=== PATIENT | female | born 1995 | race Caucasian/White ===

== ENCOUNTER 2018-12-09 20:29 | Inpatient (IN) | payer OTHER ==
[2018-12-09] MEDS ORDERED: Lactated Ringers 1000 ML Bag* 1,000 ML IV ONE (21:29)
[2018-12-09] MEDS ORDERED: Buffered Lidocaine 1% SYRIN* 1 ML/SYRINGE INTRADERM ONE (21:29)
--- NOTE | 2018-12-09 21:48 | HP ---
General Information - Reason for Visit Pt reports ctx starting this morning, then faded away, then increased in strength and intensity this evening. Reports active FM, denies LOF, does report some bloody show. - General Information Maternal Age: 23 Grav: 1 Para: 0 SAB: 0 IEA: 0 Estimated Due Date: 12/17/18 Determined By: LMP Maternal Blood Type and Rh: O Positive - Results this Serology/RPR Result: Non-Reactive Rubella Result: Immune HBsAg Result: Negative HIV Result: Negative GBS Culture Result: Negative Past Medical History Delivery History: See Records - primigravida Pertinent Past Medical History: Non-Contributory Pertinent Past Surgical History: See Records - laparoscopic appendectomy Pertinent Family History: Non-Contributory - Antepartal Records Antepartal Records: Reviewed, Complicated by: - GDM, elevated BP Review of Systems Constitutional: Uncomfortable CV Complaint: No Respiratory: Shortness of Breath: No Gastrointestinal: No Nausea/Vomiting, Normal Bowel Movement Genitourinary: No Dysuria, No Bleeding, No Leaking Fluid Musculoskeletal: No Epigastric Pain, Contractions Neurological: No Headache, No Visual Changes Movement: Normal Exam Allergies/Adverse Reactions: Allergies MS Penicillins [Penicillins] Allergy (Severe, Verified 12/01/14 16:55) Hives Vital Signs 12/09/18 21:18 Temperature 98.2 F Pulse Rate 116 Respiratory 20 Rate Blood Pressure 133/91 (mmHg) O2 Sat by Pulse 98 Oximetry - Measurements Height: 5 ft 4 in Weight: 97.976 kg Weight in lbs: 216.660755 Body Mass Index (BMI): 37.0 Pre- Weight: 84.368 kg Weight Gained This : 30 lbs and 0 ozs - Exam Breast: Breast Exam Deferred CVA: No CVA Tenderness Extremities: Edema - mild pedal edema and edema of hands Heart: Normal Rhythm/Heart Sounds HEENT: No Significant Findings Lungs: Clear Bilaterally Rectal: Rectal Exam Deferred Reflexes: DTR 2+ Thyroid: No Thyromegaly - Abdominal Exam Abdomen Exam: Non-Tender - fundal height somewhat large for dates - Ultrasound/Biophysical Profile Ultrasound Status: Not Done Targeted Exam Findings See L&D Outpatient Visit Provider Note for Findings: N/A Estimated Weight: 8# Cervical Exam: 3cm - 3-4 cm Effacement: 80% Station: -1 Presenting Part: Vertex Membrane Status: Intact Bleeding/Discharge: None EFM Findings - External Monitor Findings Baseline Heart Rate: 150 External Monitor Findings: Accelerations Present, No Pattern of Variable or Late Decelerations, Variability Moderate, Baseline Stable Contractions: Regular, Mild, Moderate, 45-90 Seconds Contraction Frequency: 2-5 Assessment/Plan - Assessment 23 year old at 38 6/7 weeks gestation in early labor with elevated BP, gestational HTN vs preeclampsia. - Obstetrical Risk Factors Obstetrical Risk Factors: Gestational Diabetes - Plan Plan: Admit - Anticipate Vaginal Delivery - discussed options with pt. As she was scheduled for induction tomorrow morning and blood pressure is elevated, will admit tonight. Will draw PEC labs and monitor labor status overnight. Pain relief as needed. - Date/Time of Admission Date of Admission: 12/09/18 Time of Admission: 21:19
[2018-12-09] MEDS ORDERED: Lactated Ringers 1000 ML Bag* 1,000 ML IV SCH (22:00)
[2018-12-09 22:27] LABS: Hematocrit 37 % (33-41); Hemoglobin 12.4 g/dL (12.0-16.0); Mean Corpuscular HGB Conc 34 g/dL (31-36); Mean Corpuscular Hemoglobin 29 pg (27-31); Mean Corpuscular Volume 86 fL (80-97); Mean Platelet Volume 9.7 fL (7.4-10.4); Platelet Count 177 10^3/uL (150-450); Red Blood Count 4.32 10^6 /uL (3.70-4.87); Red Cell Distribution Width 15 % (10.5-15); White Blood Count 11.7 10^3/uL (3.5-10.8)
[2018-12-09 22:31] LABS: ABS Basophils 0 10^3/ul (0-0.2); ABS Eosinophils 0.1 10^3/ul (0-0.6); ABS Lymphocytes 2.3 10^3/ul (1.0-4.8); ABS Monocytes 0.9 10^3/ul (0-0.8); ABS Neutrophils 8.4 10^3/ul (1.5-7.7); ABS Nucleated RBC 0 10^3/ul; Eosinophil % 0.5 %; Lymphocyte % 19.3 %; Nucleated Red Blood Cells % 0
[2018-12-09 22:43] LABS: Albumin 3.3 g/dL (3.2-5.2); Albumin/Globulin Ratio 1.1 (1-3); BUN/Creatinine Ratio 28.4 (8-20); EGFR Non-African American 109.1 (>60); Globulin 2.9 g/dL (2-4); Potassium 3.9 mmol/L (3.5-5.0); Total Bilirubin 0.2 mg/dL (0.2-1.0); Total Protein 6.2 g/dL (6.4-8.9)
--- NOTE | 2018-12-10 00:42 | PN ---
Progress Note - Progress Note Date of Service: 12/10/18 SOAP: Subjective: Pt dozing in bed. Objective: FHR baseline 140, + accels, no decels, moderate variability UCs: mild, irregular Cervical exam deferred Labs: significant for uric acid of 7, urinalysis pending BP: 139/83 Assessment: Pt likely with preeclampsia without severe features, still in early labor. No evidence of acidemia, membranes intact. Plan: Urinalysis sent for protein. Pt encouraged to rest while she is able. Will consider augmentation if no active labor by morning. Monitor BP Q 4 hours while in early labor and trying to rest.
[2018-12-10 00:46] LABS: Urine Appearance Cloudy; Urine Bacteria 1+ (Absent); Urine Bilirubin Negative (Negative); Urine Blood 1+ (Negative); Urine Color Yellow; Urine Glucose Negative (Negative); Urine Ketones Negative (Negative); Urine Nitrite Negative (Negative); Urine Protein Negative (Negative); Urine Red Blood Cell Absent (Absent); Urine Specific Gravity 1.011 (1.010-1.030); Urine Squamous Epithelial Cell Present (Absent); Urine Urobilinogen Negative (Negative); Urine White Blood Cell 1+(6-10/hpf) (Absent)
--- NOTE | 2018-12-10 08:15 | PN ---
Progress Note - Progress Note Date of Service: 12/10/18 SOAP: Subjective: Pt slept overnight, feels rested and ready to labor. She reports ctx stronger when upright than when at rest. Would like to try upright positioning to see if she can get into more active labor prior to starting Pitocin. Objective: FHR: Baseline 140, moderate variability, no accels, no decels UCs: about every 5 minutes BP: 122/ 87 Membranes intact Cervical exam deferred Assessment: Pt slept well, not in active labor. No evidence of acidemia. Gestational HTN vs preeclampsia without severe features Plan: Pt with strong preference to see if labor picks up on her own with upright positioning. She is okay with Pitocin augmentation in a few hours if active labor does not ensure. Report to oncoming community midwife Melissa Retana CNM.
--- NOTE | 2018-12-10 09:09 | PN ---
Progress Note - Progress Note Date of Service: 12/10/18 Note: SOAP: Subjective: Pt upright eating breakfast. Reports strong contractions when up and moving. Would like to walk and move for next few hours to see if she can get labor going prior to starting Pitocin or AROM. Denies CHRISTOPHER, epigastric pain, vision changes. +Edema. Objective: VE: deferred FHR: Baseline 140, moderate variability, no accels, no decels UCs: about every 5 minutes PEC labs: Uric Acid 7 BP: 122/ 87 IBOW Assessment: 23yo, , IUP@39 weeks here for an IOL for GDM and GHTN vs. PEC GBS negative Varicella non-immune Elevated uric acid No evidence of acidemia Plan: Pt to ambulate for next few hours Start IOL in 2-3 hours if active labor pattern not established Anticipate progression to active labor
--- NOTE | 2018-12-10 13:49 | PN ---
Progress Note - Progress Note Date of Service: 12/10/18 Note: SOAP: Subjective: After walking, sitting on yoga ball, soaking in tub - contraction still not regular/painful. Pt would like to proceed with IOL. Objective: Auscultation 140 bpm BP: 123/86 Membranes intact Cervical exam deferred Assessment: IUP@39 weeks here for IOL d/t GDM and GHTN vs. PEC (uric acid 7) GBS negative Not in active labor Plan: Dicsussed risk vs. benefits of AROM and start of active labor. Also discussed risks vs benefits of Pitocin. Pt concerned about painful uterine contractions with Pitocin, requesting epidural Plan for epidural now. Anesthesia aware. AROM and start low dose Pitocin to follow Anticipate progression to active labor.
[2018-12-10] MEDS ORDERED: Oxytocin in LR* 20 UNITS/1,000 ML BAG IVPB SCH (14:00)
[2018-12-10] MEDS ORDERED: OBEPIDURAL* 250 ML EPIDURAL ONE (15:05)
[2018-12-10] MEDS ORDERED: EPHEDrine (Pressors)* 50 MG/ML VIAL IV PUSH PRN ×2 (15:11)
[2018-12-10] MEDS ORDERED: Phenylephrine 40 MCG/ML SYRINGE IV PUSH PRN ×2 (15:11)
[2018-12-10] MEDS ORDERED: Lactated Ringers 1000 ML Bag* 500 ML IV PRN ×2 (15:11)
[2018-12-10] MEDS ORDERED: Famotidine TAB* 20 MG PO PRN (15:11)
[2018-12-10] MEDS ORDERED: Sodium Citrate/Citric Acid* 15 ML UDC PO PRN (15:11)
[2018-12-10] MEDS ORDERED: Lactated Ringers 1000 ML Bag* 1,000 ML IV ONE (15:11)
[2018-12-10] MEDS ORDERED: OBEPIDURAL* 250 ML EPIDURAL SCH (16:00)
[2018-12-10] MEDS ORDERED: Lactated Ringers 1000 ML Bag* 1,000 ML IV SCH (16:00)
--- NOTE | 2018-12-10 17:33 | PN ---
Progress Note - Progress Note Date of Service: 12/10/18 Note: SOAP: Subjective: Pt in bed sleeping. CEI infusing. Objective: BP: 106/73 FHR 140 bpm, moderate variability, +accels, no decels Cervical exam deferred Pitocin@6mU Assessment: IUP@39 weeks here for IOL d/t GDM and GHTN vs. PEC (uric acid 7) GBS negative BP WNL IBOW Plan: Continue low dose pitocin until adequate contraction pattern achieved VE prn anticipate progression to active labor
--- NOTE | 2018-12-10 18:06 | PN ---
Progress Note - Progress Note Date of Service: 12/10/18 Note: Pt awake VE: 4/50/-1 AROM, clear fluid FHR 140 bpm, moderate variability, +accels, no decels - no evidence of acidemia Pitocin@8mU
--- NOTE | 2018-12-10 19:16 | PN ---
Progress Note - Progress Note Date of Service: 12/10/18 Note: SOAP: Subjective: Pt very uncomfortable with contractions. Objective: BP: 106/73 FHR 140 bpm, moderate variability, +accels, no decels VE: 5-6cm/100/-1, bloody show Pitocin@6mU Assessment: IUP@39 weeks here for IOL d/t GDM and GHTN vs. PEC (uric acid 7) GBS negative BP WNL IBOW Plan: Anestheisa called for redose Continue low dose pitocin until adequate contraction pattern achieved VE prn anticipate progression to active labor
[2018-12-10] MEDS ORDERED: Lidocaine 2% PF * 5 ML VIAL ONE (20:05)
[2018-12-10] MEDS ORDERED: Bupivacaine 0.25% SDV PF* 10 ML VIAL INJ ONE (20:06)
--- NOTE | 2018-12-10 20:46 | PN ---
Progress Note - Progress Note Date of Service: 12/10/18 Note: SOAP: Subjective: Pt very uncomfortable with contractions. Feeling pressure. Objective: FHR 140 bpm, moderate variability, +accels, no decels Clear fluid VE: 8cm/100/0, bloody show Assessment: IUP@39 weeks here for IOL d/t GDM and GHTN vs. PEC (uric acid 7) GBS negative BP WNL Plan: CEI moderately effective. VE prn Anticipate progression to
[2018-12-10] MEDS ORDERED: Ondansetron INJ* 2 MG/ML VIAL IV ONE (20:52)
[2018-12-11] MEDS ORDERED: Witch Hazel PAD* JAR TOPICAL PRN (00:09)
[2018-12-11] MEDS ORDERED: Glycerin ADULT SUPP PR PRN (00:09)
[2018-12-11] MEDS ORDERED: Acetaminophen TAB* 325 MG PO PRN (00:09)
--- NOTE | 2018-12-11 00:48 | PROCNOTE ---
[facility] OB: Delivery Note - Delivery A Date of : 12/10/18 Time of : 22:29 [place] Sex: Male Weight at : 7 lb 5 oz Score 1 Minute: 9 Score 5 Minutes: 9 Gestational Age in Weeks and Days at Delivery: 39 Weeks and 0 Days Delivery Method: Spontaneous Vaginal Labor: Induced Amniotic Fluid: Clear Anesthesia/Analgesia: CEI for Labor Delivered By: Ivonne Leong - Nursery Level of Nursery: Regular/Bedside - Perineum Perineal Injury: 3rd Degree Extension - Events Delivery Events of Note: Pitocin During Labor - Additional Delivery Notes Additional Delivery Notes: Pt's labor managed by CNMs. She was induced for GHTN with AROM and pitocin. She received an epidural, progressed through labor and pushed for 1hr 20min to deliver the infant's head with assistance of the FOB followed quickly by the rest of the body. The baby was placed on mom's abdomen. After more than 1min the cord was clamped x2 and cut by the FOB. After about 30min the placenta delivered with gentle cord traction and fundal massage and appeared intact. Delivery by MD due to simultaneous CNM deliveries. There was a partial 3rd degree laceraction. The capsule was reapproximated with 2 figure of eight sutures of 3-0 vicryl. The rest of the laceration was repaired by Carin Hunter CNM in the usual 2nd degree fashion under my guidance. Pt had some moderate bleeding and was given 800mcg of cytotec rectally with good improvement in her bleeding. Fundus was firm. Mom and baby stable at time of note.
[2018-12-11] MEDS ORDERED: Misoprostol TAB* 200 MCG PR ONE (00:50)
[2018-12-11] MEDS ORDERED: Lactated Ringers 1000 ML Bag* 1,000 ML IV SCH (01:00)
[2018-12-11] MEDS: Ibuprofen TAB* 600 MG PO PRN ×4 (01:44→19:37)
[2018-12-11] MEDS: Docusate CAP* 100 MG PO SCH ×3 (07:19→19:37)
[2018-12-11] MEDS: Dibucaine 1% 28.35 GM TUBE PR PRN (07:25)
[2018-12-11 08:09] LABS: ABS Basophils 0 10^3/ul (0-0.2); ABS Eosinophils 0 10^3/ul (0-0.6); ABS Lymphocytes 1.9 10^3/ul (1.0-4.8); ABS Monocytes 1.1 10^3/ul (0-0.8); ABS Neutrophils 11.5 10^3/ul (1.5-7.7); ABS Nucleated RBC 0 10^3/ul; Eosinophil % 0.1 %; Hematocrit 29 % (33-41); Hemoglobin 9.8 g/dL (12.0-16.0); Lymphocyte % 13.2 %; Mean Corpuscular HGB Conc 33 g/dL (31-36); Mean Corpuscular Hemoglobin 28 pg (27-31); Mean Corpuscular Volume 85 fL (80-97); Nucleated Red Blood Cells % 0; Platelet Count 175 10^3/uL (150-450); Red Blood Count 3.45 10^6 /uL (3.70-4.87); Red Cell Distribution Width 14 % (10.5-15); White Blood Count 14.6 10^3/uL (3.5-10.8)
[2018-12-11] MEDS ORDERED: Simethicone TAB* 80 MG TAB.CHEW PO SCH (08:30)
[2018-12-12] MEDS: Ibuprofen TAB* 600 MG PO PRN ×3 (05:54→20:00)
[2018-12-12] MEDS: Dibucaine 1% 28.35 GM TUBE PR PRN (08:55)
[2018-12-12] MEDS: Docusate CAP* 100 MG PO SCH ×3 (08:55→19:59)
[2018-12-12] MEDS: Ferrous Gluconate TAB* 324 MG TAB PO SCH ×2 (12:45→20:00)
[2018-12-12] MEDS ORDERED: Varicella Virus Vaccine Live* 0.5 ML VIAL SUBCUT ONE (15:54)
[2018-12-12 19:44] VITALS: BP 123/71
== END 2018-12-12 20:00 | disposition home or self-care (01) | DRG 560 ==
LOC: MCHOBOUT 20:29 → MCHOB 21:19
PROVIDERS: ADMIT Midwife; ATTEND Midwife
PROC: 3E033VJ Introduction of Other Hormone into Peripheral Vein, Percutaneous Approach (ICD-10-PCS; principal; 2018-12-09)
PROC: 10907ZC Drainage of Amniotic Fluid, Therapeutic from Products of Conception, Via Natural or Artificial Opening (ICD-10-PCS; 2018-12-09)
PROC: 10E0XZZ Delivery of Products of Conception, External Approach (ICD-10-PCS; 2018-12-09)
PROC: 4A1HXCZ Monitoring of Products of Conception, Cardiac Rate, External Approach (ICD-10-PCS; 2018-12-09)
PROC: 0KQM0ZZ Repair Perineum Muscle, Open Approach (ICD-10-PCS; 2018-12-09)
DX: O13.4 Gestational [pregnancy-induced] hypertension without significant proteinuria, complicating childbirth (principal); Z37.0 Single live birth; O24.429 Gestational diabetes mellitus in childbirth, unspecified control; O69.82X0 Labor and delivery complicated by other cord entanglement, without compression, not applicable or unspecified; O69.81X0 Labor and delivery complicated by cord around neck, without compression, not applicable or unspecified; Z3A.39 39 weeks gestation of pregnancy; Z88.0 Allergy status to penicillin; O70.1 Second degree perineal laceration during delivery; O90.81 Anemia of the puerperium; O72.1 Other immediate postpartum hemorrhage
CPT/HCPCS: 36415; 80053; 81003; 81015; 84550; 85025; 86850; 86900; 86901; 87086; A9270-GY; J3490

== ENCOUNTER 2022-08-27 10:38 | Inpatient (IN) ==
[2022-08-27] MEDS ORDERED: Buffered Lidocaine 1% SYRIN 1 ml INTRADERM ONE (11:24)
[2022-08-27] MEDS ORDERED: Lactated Ringers 1000 ml BAG 1,000 ML IV ONE (11:24)
[2022-08-27] MEDS ORDERED: Lactated Ringers 1000 ml BAG 1,000 ML IV SCH (12:00)
[2022-08-27 12:11] LABS: Urine Benzodiazepine Screen None Detected (None Detect); Urine Cannabinoids Screen None Detected (None Detect); Urine Opiates Screen None Detected (None Detect)
[2022-08-27 18:04] LABS: ABS Lymphocytes 1.3 10^3/ul (1.0-4.8); ABS Monocytes 0.5 10^3/ul (0-0.8); ABS Neutrophils 5.8 10^3/ul (1.5-7.7); Eosinophil % 0.3 %; Hematocrit 40 % (35-47); Hemoglobin 13.3 g/dL (12.0-16.0); Lymphocyte % 17.3 %; Mean Corpuscular HGB Conc 34 g/dL (31-36); Mean Corpuscular Hemoglobin 30 pg (27-31); Mean Corpuscular Volume 89 fL (80-97); Mean Platelet Volume 10.1 fL (7.4-10.4); Platelet Count 172 10^3/uL (150-450); Red Blood Count 4.48 10^6 /uL (3.70-4.87); Red Cell Distribution Width 14 % (10-15); White Blood Count 7.7 10^3/uL (3.5-10.8)
[2022-08-27] MEDS ORDERED: Oxytocin in LR 20,000 MILLI.UNIT/1,000 ML BAG IV ONE (18:20)
[2022-08-27] MEDS ORDERED: Witch Hazel PAD JAR TOPICAL PRN (18:51)
[2022-08-27] MEDS ORDERED: Glycerin ADULT 2.4 gm SUPP PR PRN (18:51)
[2022-08-27] MEDS ORDERED: Dibucaine 1% OINT 28.35 GM TUBE PR PRN (18:51)
[2022-08-28 06:19] LABS: ABS Lymphocytes 1.4 10^3/ul (1.0-4.8); ABS Monocytes 0.5 10^3/ul (0-0.8); ABS Neutrophils 5.2 10^3/ul (1.5-7.7); Eosinophil % 0.3 %; Hematocrit 33 % (35-47); Hemoglobin 11.4 g/dL (12.0-16.0); Lymphocyte % 19.1 %; Mean Corpuscular HGB Conc 35 g/dL (31-36); Mean Corpuscular Hemoglobin 31 pg (27-31); Mean Corpuscular Volume 88 fL (80-97); Mean Platelet Volume 9.3 fL (7.4-10.4); Platelet Count 117 10^3/uL (150-450); Red Blood Count 3.72 10^6 /uL (3.70-4.87); Red Cell Distribution Width 14 % (10-15); White Blood Count 7.1 10^3/uL (3.5-10.8)
[2022-08-29] MEDS ORDERED: Tetan/Diph/Pertus SYR(Tdap) 0.5 ML SYR(BOOSTRIX) use SYR contains LATEX IM ONE (09:30)
[2022-08-29 09:55] VITALS: BP 125/92
== END 2022-08-29 12:12 | disposition home or self-care (01) | DRG 560 ==
LOC: MCHOBOUT 10:38 → MCHOB 11:26
PROVIDERS: ADMIT Midwife; ATTEND Midwife